=== PATIENT | female | born 1965 | race Caucasian/White ===

== ENCOUNTER 2021-10-23 10:50 | Emergency (ER) | payer OTHER ==
[2021-10-23] MEDS ORDERED: PERCOCET 5-3251 EACH PO (12:15)
[2021-10-23] MEDS ORDERED: ONDANSETRON ODT4 MG SL (12:15)
== END 2021-10-23 13:02 | disposition home or self-care (01) ==
LOC: FER 10:50
DX: S83.92XA Sprain of unspecified site of left knee, initial encounter (principal); F17.200 Nicotine dependence, unspecified, uncomplicated; I10 Essential (primary) hypertension; J45.909 Unspecified asthma, uncomplicated; W07.XXXA Fall from chair, initial encounter; Y92.009 Unspecified place in unspecified non-institutional (private) residence as the place of occurrence of the external cause
CPT/HCPCS: 73564; J1885